=== PATIENT | female | born 1990 | race Two or more races ===

== ENCOUNTER 2024-02-24 03:33 | Emergency (ER) | payer MEDICAID, OTHER ==
[~2024-02-24] VITALS: Ht 157.5 cm; Wt 82.0 kg
[2024-02-24 03:34] VITALS: BP 158/84; PULSE 117
[2024-02-24] MEDS: diphenhdrAMINE HCL 50 MG/1 ML VL IM ONE (03:49)
[2024-02-24 04:13] VITALS: RESP 18; O2SAT 98
[2024-02-24] MEDS: ALBUTEROL SULF 2.5 MG/0.5ML(0.5%) NEB SOLN NEB ONE (04:13)
[2024-02-24] MEDS: IPRATROPIUM BROM 0.5 MG/2.5ML INH SOL NEB ONE (04:13)
[2024-02-24] MEDS: DexAMETHasone SOD PHOS 10MG/1ML VIAL INJ IM ONE (05:05)
[2024-02-24] MEDS ORDERED: CETITAB29 PO (05:09)
[2024-02-24] MEDS ORDERED: PRED20TA2 PO (05:09)
== END 2024-02-24 05:14 | disposition home or self-care (01) ==
LOC: ER 03:36
DX: T78.49XA Other allergy, initial encounter (principal); J45.909 Unspecified asthma, uncomplicated; Z79.899 Other long term (current) drug therapy; X58.XXXA Exposure to other specified factors, initial encounter
CPT/HCPCS: 94640; 96372; 99284; J1100; J1200; J7644